=== PATIENT | male | born 1980 | race African-American/Black ===

== ENCOUNTER 2018-06-03 04:23 | Inpatient (IN) | payer SELFPAY ==
[~2018-06-03] VITALS: Ht 185.4 cm; Wt 117.7 kg
[2018-06-03] MEDS ORDERED: ASPIRIN 81MG TABLET PO ONE (04:45)
[2018-06-03 04:50] LABS: BASOPHILS % 0.6 % (0.0-2.0); EOSINOPHILS % 0.7 % (0.0-5.0); HEMATOCRIT. 42.5 % (42.0-52.0); HEMOGLOBIN. 14.7 g/dL (14.0-18.0); LYMPHOCYTES % 7.9 % (20.0-50.0); MEAN CORPUSCULAR HEMOGLOBIN 29.3 pg (28.0-32.0); MEAN CORPUSCULAR VOLUME 84.7 fL (80.0-94.0); MEAN PLATELET VOLUME 8.8 fl (7.4-10.4); MONOCYTES % 4.5 % (2.0-8.0); NEUTROPHILS % 86.3 % (40.0-76.0); PLATELET 152 x1000/uL (130-400); RED BLOOD CELL COUNT 5.02 mill/uL (4.7-6.1); RED CELL DISTRIBUTION WIDTH 13.8 % (11.6-14.6)
[2018-06-03 04:57] LABS: CHLORIDE 104 mEq/L (98-107)
[2018-06-03] MEDS ORDERED: CLONIDINE 0.2MG TABLET PO ONE (05:30)
[2018-06-03] MEDS ORDERED: CLONIDINE 0.2MG TABLET PO PRN (08:45)
[2018-06-03] MEDS ORDERED: IPRATROPIUM/ALBUTEROL 0.5-3(2.5)MG/3ML NEB INH PRN ×2 (08:45→11:15)
[2018-06-03] MEDS ORDERED: ACETAMINOPHEN 325MG TABLET PO PRN (08:45)
[2018-06-03] MEDS ORDERED: ONDANSETRON HCL 4MG/2ML INJ IV PRN (08:45)
[2018-06-03] MEDS ORDERED: MAGNESIUM/ALUMINUM HYDROXIDE/SIMETHICONE 30ML UDC PO PRN ×2 (08:45→11:15)
[2018-06-03] MEDS ORDERED: GUAIFENESIN 200MG/10ML SUGAR FREE UDC PO PRN ×2 (08:45→11:15)
[2018-06-03] MEDS ORDERED: DIPHENHYDRAMINE 50MG/ML VIAL IV PRN ×2 (08:45→11:15)
[2018-06-03] MEDS ORDERED: LOSARTAN POTASSIUM 100 MG TABLET PO SCH (09:15)
[2018-06-03] MEDS ORDERED: NIFEDIPINE XL 60MG TAB PO SCH (09:15)
[2018-06-03] MEDS ORDERED: DEXTROSE 50% WATER 50ML SYRINGE IV PRN ×2 (09:15→11:15)
[2018-06-03] MEDS ORDERED: HYDRALAZINE 20MG/ML VIAL IV PRN ×2 (09:15→11:15)
[2018-06-03] MEDS ORDERED: INSULIN GLARGINE UD 100 UNITS/ML SYR SUBCUT SCH (10:00)
[2018-06-03 11:38] VITALS: BP 154/102
[2018-06-03 11:45] VITALS: BP 154/102
[2018-06-03] MEDS: NIFEDIPINE XL 60MG TAB PO SCH (12:41)
[2018-06-03] MEDS: LOSARTAN POTASSIUM 100 MG TABLET PO SCH (12:41)
[2018-06-03] MEDS: INSULIN GLARGINE UD 100 UNITS/ML SYR SUBCUT SCH (12:50)
[2018-06-03] MEDS ORDERED: BLOOD SUGAR DIAGNOSTIC STRIP TEST SCH (13:00)
[2018-06-03] MEDS ORDERED: INSULIN LISPRO 100 UNITS/ML SUBCUT SCH (13:20)
[2018-06-03] MEDS ORDERED: SODIUM CHLORIDE 0.9% INJ 3ML FLUSH IVF SCH (14:00)
[2018-06-03] MEDS: SODIUM CHLORIDE 0.9% INJ 3ML FLUSH IVF SCH ×2 (14:11→20:42)
[2018-06-03] MEDS ORDERED: HYDROCHLOROTHIAZIDE 25MG TABLET PO SCH (15:30)
[2018-06-03] MEDS: FUROSEMIDE 40MG/4ML VIAL IVP SCH (15:49)
[2018-06-03] MEDS: POTASSIUM CHLORIDE 20MEQ TABLET SR PO SCH (15:49)
[2018-06-03] MEDS: BLOOD SUGAR DIAGNOSTIC STRIP TEST SCH ×2 (16:36→20:42)
[2018-06-03 16:42] VITALS: BP 154/100
[2018-06-03] MEDS: INSULIN LISPRO 100 UNITS/ML SUBCUT SCH ×2 (16:51→20:42)
[2018-06-03] MEDS: METFORMIN HCL 500MG TABLET PO SCH (16:51)
[2018-06-03] MEDS ORDERED: METFORMIN HCL 500MG TABLET PO SCH (17:00)
[2018-06-03 20:00] VITALS: BP 143/90
[2018-06-03] MEDS: METOPROLOL TARTRATE 25MG TABLET PO SCH (20:41)
[2018-06-04] VITALS: BP 144/89
[2018-06-04 04:00] VITALS: BP 147/99
[2018-06-04 05:49] LABS: BASOPHILS % 0.3 % (0.0-2.0); EOSINOPHILS % 1.7 % (0.0-5.0); HEMATOCRIT. 44.8 % (42.0-52.0); HEMOGLOBIN. 15.3 g/dL (14.0-18.0); LYMPHOCYTES % 17.6 % (20.0-50.0); MEAN CORPUSCULAR HEMOGLOBIN 29.2 pg (28.0-32.0); MEAN CORPUSCULAR VOLUME 85.3 fL (80.0-94.0); MEAN PLATELET VOLUME 9.7 fl (7.4-10.4); MONOCYTES % 4.7 % (2.0-8.0); NEUTROPHILS % 75.7 % (40.0-76.0); PLATELET 186 x1000/uL (130-400); RED BLOOD CELL COUNT 5.25 mill/uL (4.7-6.1); RED CELL DISTRIBUTION WIDTH 13.5 % (11.6-14.6)
[2018-06-04 05:55] LABS: CHLORIDE 105 mEq/L (98-107)
[2018-06-04 06:02] LABS: LDL CHOLESTEROL 163 mg/dL (5-100)
[2018-06-04 06:03] LABS: HDL CHOLESTEROL 42 mg/dL (40-59)
[2018-06-04] MEDS: INSULIN LISPRO 100 UNITS/ML SUBCUT SCH ×2 (06:25→11:46)
[2018-06-04] MEDS: SODIUM CHLORIDE 0.9% INJ 3ML FLUSH IVF SCH ×2 (06:26→15:35)
[2018-06-04] MEDS: BLOOD SUGAR DIAGNOSTIC STRIP TEST SCH ×2 (06:26→11:41)
[2018-06-04 08:00] VITALS: BP 143/96
[2018-06-04 08:01] LABS: METHADONE URINE SCREEN NEGATIVE (NEGATIVE); OPIATES URINE SCREEN NEGATIVE (NEGATIVE)
[2018-06-04 08:02] LABS: *AMPHETAMINES SCREEN URINE NEGATIVE (NEGATIVE); *BARBITURATES SCREEN URINE NEGATIVE (NEGATIVE); *BENZODIAZEPINES SCREEN URINE NEGATIVE (NEGATIVE); *COCAINE SCREEN URINE NEGATIVE (NEGATIVE); CANNABINOID URINE SCREEN NEGATIVE (NEGATIVE); PHENCYCLIDINE URINE SCREEN NEGATIVE (NEGATIVE)
[2018-06-04] MEDS: NIFEDIPINE XL 60MG TAB PO SCH (09:23)
[2018-06-04] MEDS: METOPROLOL TARTRATE 25MG TABLET PO SCH (09:23)
[2018-06-04] MEDS: POTASSIUM CHLORIDE 20MEQ TABLET SR PO SCH (09:23)
[2018-06-04] MEDS: LOSARTAN POTASSIUM 100 MG TABLET PO SCH (09:23)
[2018-06-04] MEDS: FUROSEMIDE 40MG/4ML VIAL IVP SCH (09:24)
[2018-06-04] MEDS: METFORMIN HCL 500MG TABLET PO SCH (09:24)
[2018-06-04] MEDS: INSULIN GLARGINE UD 100 UNITS/ML SYR SUBCUT SCH (11:41)
[2018-06-04 13:16] VITALS: BP 138/83
[2018-06-04 14:14] LABS: PLATELET ESTIMATE NORMAL
[2018-06-05] MEDS ORDERED: INSULIN GLARGINE UD 100 UNITS/ML SYR SUBCUT SCH (10:00)
== END 2018-06-04 15:36 | disposition home or self-care (01) | DRG 199 ==
LOC: ER 04:23 → 8WST 05:38 → ENRESERV 07:09 → CANRESERV 07:37 → ENRESERV 07:37 → CANBEDREQ 07:38 → ENRESERV 10:08 → ER 11:06 → 8WST 12:40
PROVIDERS: ADMIT Internal Medicine; ATTEND Internal Medicine
DX: I16.1 Hypertensive emergency (principal); I50.23 Acute on chronic systolic (congestive) heart failure; E11.65 Type 2 diabetes mellitus with hyperglycemia; E66.01 Morbid (severe) obesity due to excess calories; I11.0 Hypertensive heart disease with heart failure; E78.00 Pure hypercholesterolemia, unspecified; Z79.84 Long term (current) use of oral hypoglycemic drugs; Z79.899 Other long term (current) drug therapy; Z82.49 Family history of ischemic heart disease and other diseases of the circulatory system; Z83.3 Family history of diabetes mellitus; Z91.19 Patient's noncompliance with other medical treatment and regimen; Z88.5 Allergy status to narcotic agent
CPT/HCPCS: 36415; 71045; 80048; 80061; 80305; 82962; 83036; 83880; 84443; 84484; 93005; 93306; 93970; 99291; J1815; J1940

== ENCOUNTER 2018-06-08 08:20 | Emergency (ER) | payer SELFPAY ==
[~2018-06-08] VITALS: Ht 185.4 cm; Wt 118.0 kg
[2018-06-08 11:30] VITALS: BP 160/90
== END 2018-06-08 11:32 | disposition home or self-care (01) ==
LOC: ER 08:20
DX: R07.9 Chest pain, unspecified (principal); R06.02 Shortness of breath; E78.00 Pure hypercholesterolemia, unspecified; E11.9 Type 2 diabetes mellitus without complications; I10 Essential (primary) hypertension; Z88.5 Allergy status to narcotic agent
CPT/HCPCS: 99283

== ENCOUNTER 2018-09-08 03:17 | Inpatient (IN) | payer MEDICAID, OTHER ==
[~2018-09-08] VITALS: Ht 182.9 cm; Wt 115.4 kg
[2018-09-08] VITALS (9 sets, daily range): BP systolic 156–177; BP diastolic 86–127
[2018-09-08] MEDS ORDERED: SODIUM CHLORIDE 0.9% 1,000 ML IV ONE (03:33)
[2018-09-08 03:49] LABS: BASOPHILS % 0.4 % (0.0-2.0); EOSINOPHILS % 0.4 % (0.0-5.0); HEMATOCRIT. 38.8 % (42.0-52.0); HEMOGLOBIN. 13.1 g/dL (14.0-18.0); LYMPHOCYTES % 7.3 % (20.0-50.0); MEAN CORPUSCULAR HEMOGLOBIN 29.4 pg (28.0-32.0); MEAN CORPUSCULAR VOLUME 87.4 fL (80.0-94.0); MEAN PLATELET VOLUME 8.3 fl (7.4-10.4); MONOCYTES % 4.1 % (2.0-8.0); NEUTROPHILS % 87.8 % (40.0-76.0); PLATELET 160 x1000/uL (130-400); RED BLOOD CELL COUNT 4.44 mill/uL (4.7-6.1); RED CELL DISTRIBUTION WIDTH 14.1 % (11.6-14.6)
[2018-09-08 03:53] LABS: CLARITY URINE CLEAR (CLEAR); COLOR URINE YELLOW (YELLOW); KETONES URINE TRACE (NEGATIVE); LEUKOCYTE ESTERASE URINE NEGATIVE (NEGATIVE); NITRITE URINE NEGATIVE (NEGATIVE); OCCULT BLOOD URINE NEGATIVE (NEGATIVE); PROTEIN URINE NEGATIVE (NEGATIVE); SPECIFIC GRAVITY URINE 1.011 (1.005-1.030)
[2018-09-08 03:55] LABS: CHLORIDE 108 mEq/L (98-107)
[2018-09-08 03:59] LABS: ETHANOL BLOOD < 10 mg/dL
[2018-09-08 04:04] LABS: *AMPHETAMINES SCREEN URINE NEGATIVE (NEGATIVE); *BARBITURATES SCREEN URINE NEGATIVE (NEGATIVE); *BENZODIAZEPINES SCREEN URINE NEGATIVE (NEGATIVE); *COCAINE SCREEN URINE NEGATIVE (NEGATIVE); METHADONE URINE SCREEN NEGATIVE (NEGATIVE); OPIATES URINE SCREEN NEGATIVE (NEGATIVE); PHENCYCLIDINE URINE SCREEN NEGATIVE (NEGATIVE)
[2018-09-08 04:05] LABS: CANNABINOID URINE SCREEN NEGATIVE (NEGATIVE)
[2018-09-08] MEDS ORDERED: POTASSIUM CHLORIDE 20MEQ TABLET SR PO SCH (04:15)
[2018-09-08] MEDS ORDERED: KETOROLAC 30MG/ML VIAL IV SCH (04:15)
[2018-09-08] MEDS: FUROSEMIDE 40MG/4ML VIAL IVP SCH ×3 (05:13→09:55)
[2018-09-08] MEDS ORDERED: ONDANSETRON HCL 4MG/2ML INJ IV PRN (08:30)
[2018-09-08] MEDS ORDERED: DEXTROSE 50% WATER 50ML SYRINGE IV PRN (08:30)
[2018-09-08] MEDS ORDERED: IPRATROPIUM/ALBUTEROL 0.5-3(2.5)MG/3ML NEB HHN PRN (08:30)
[2018-09-08] MEDS ORDERED: CLONIDINE 0.1MG TABLET PO PRN ×2 (08:30→15:15)
[2018-09-08] MEDS ORDERED: ACETAMINOPHEN 325MG TABLET PO PRN (08:30)
[2018-09-08] MEDS ORDERED: AMLODIPINE 5MG TABLET PO SCH (09:00)
[2018-09-08] MEDS: AZITHROMYCIN 500 MG TABLET PO SCH (09:55)
[2018-09-08] MEDS: ENOXAPARIN 40MG/0.4ML SYR SUBCUT SCH (09:56)
[2018-09-08] MEDS: LOSARTAN POTASSIUM 100 MG TABLET PO SCH (12:22)
[2018-09-08] MEDS: BLOOD SUGAR DIAGNOSTIC STRIP TEST SCH ×3 (12:25→21:59)
[2018-09-08] MEDS ORDERED: NIFEDIPINE XL 60MG TAB PO SCH (13:00)
[2018-09-08] MEDS: INSULIN LISPRO 100 UNITS/ML SUBCUT SCH ×3 (13:06→22:19)
[2018-09-08] MEDS ORDERED: HYDRALAZINE 20MG/ML VIAL IV PRN (15:00)
[2018-09-08] MEDS: CEFTRIAXONE 1 G PREMIX 50 ML IV SCH (15:51)
[2018-09-08] MEDS ORDERED: FURO40TA5 PO (20:35)
[2018-09-08] MEDS ORDERED: METF-416 MT (20:35)
[2018-09-08] MEDS ORDERED: ATORVASTATIN CALCIUM 40MG TABLET PO SCH (21:00)
[2018-09-08] MEDS ORDERED: IBUPROFEN 600MG TABLET PO PRN (21:15)
[2018-09-08] MEDS ORDERED: DICL100G31 TP (21:28)
[2018-09-08] MEDS ORDERED: ATOR40TA70 MT (21:28)
[2018-09-08] MEDS: NIFEDIPINE XL 60MG TAB PO SCH (21:52)
[2018-09-08] MEDS: CARVEDILOL 12.5MG TABLET PO SCH (21:53)
[2018-09-08] MEDS: HYDRALAZINE HCL 50MG TABLET PO SCH (22:18)
[2018-09-09] VITALS (14 sets, daily range): BP systolic 125–168; BP diastolic 67–105
[2018-09-09] MEDS: HYDRALAZINE HCL 50MG TABLET PO SCH ×2 (06:00→13:41)
[2018-09-09 06:10] LABS: BASOPHILS % 0.5 % (0.0-2.0); EOSINOPHILS % 4.8 % (0.0-5.0); HEMATOCRIT. 41.7 % (42.0-52.0); HEMOGLOBIN. 14.2 g/dL (14.0-18.0); LYMPHOCYTES % 16.2 % (20.0-50.0); MEAN CORPUSCULAR HEMOGLOBIN 29.6 pg (28.0-32.0); MEAN PLATELET VOLUME 9.2 fl (7.4-10.4); MONOCYTES % 5.1 % (2.0-8.0); NEUTROPHILS % 73.4 % (40.0-76.0); PLATELET 179 x1000/uL (130-400); RED BLOOD CELL COUNT 4.79 mill/uL (4.7-6.1); RED CELL DISTRIBUTION WIDTH 14.1 % (11.6-14.6)
[2018-09-09 06:28] LABS: CHLORIDE 107 mEq/L (98-107)
[2018-09-09 06:40] LABS: LDL CHOLESTEROL 64 mg/dL (5-100)
[2018-09-09 06:41] LABS: CREATINE KINASE 150 IU/L (39-308)
[2018-09-09 06:42] LABS: HDL CHOLESTEROL 37 mg/dL (40-59)
[2018-09-09 06:44] LABS: CREATINE KINASE MB FRACTION < 1.0 ng/mL (0.5-3.6)
[2018-09-09] MEDS: BLOOD SUGAR DIAGNOSTIC STRIP TEST SCH ×3 (08:20→17:30)
[2018-09-09] MEDS: ENOXAPARIN 40MG/0.4ML SYR SUBCUT SCH (08:30)
[2018-09-09] MEDS: FUROSEMIDE 40MG/4ML VIAL IVP SCH (08:30)
[2018-09-09] MEDS: AZITHROMYCIN 500 MG TABLET PO SCH (08:31)
[2018-09-09] MEDS: INSULIN LISPRO 100 UNITS/ML SUBCUT SCH ×3 (08:32→18:00)
[2018-09-09] MEDS: CARVEDILOL 12.5MG TABLET PO SCH (08:34)
[2018-09-09] MEDS: NIFEDIPINE XL 60MG TAB PO SCH (08:39)
[2018-09-09] MEDS: LOSARTAN POTASSIUM 100 MG TABLET PO SCH (08:39)
[2018-09-09] MEDS ORDERED: ASPIRIN 81MG EC TABLET PO SCH (09:00)
[2018-09-09] MEDS ORDERED: POTASSIUM CHLORIDE 20MEQ TABLET SR PO SCH (11:00)
[2018-09-09] MEDS: CEFTRIAXONE 1 G PREMIX 50 ML IV SCH (13:33)
[2018-09-09 15:43] LABS: T4 FREE 1.17 ng/dL (0.76-1.46)
[2018-09-09] MEDS ORDERED: ATORVASTATIN CALCIUM 40MG TABLET PO SCH (21:00)
== END 2018-09-09 18:44 | disposition home or self-care (01) | DRG 194 ==
LOC: ER 03:17 → 5EST 04:55 → ENRESERV 06:57
PROVIDERS: ADMIT Internal Medicine; ATTEND Internal Medicine
DX: I11.0 Hypertensive heart disease with heart failure (principal); J96.00 Acute respiratory failure, unspecified whether with hypoxia or hypercapnia; E87.8 Other disorders of electrolyte and fluid balance, not elsewhere classified; I50.23 Acute on chronic systolic (congestive) heart failure; I31.3 Pericardial effusion (noninflammatory); I42.9 Cardiomyopathy, unspecified; E11.9 Type 2 diabetes mellitus without complications; E78.00 Pure hypercholesterolemia, unspecified; E78.5 Hyperlipidemia, unspecified; E87.6 Hypokalemia; I45.10 Unspecified right bundle-branch block; G90.8 Other disorders of autonomic nervous system; Z88.5 Allergy status to narcotic agent
CPT/HCPCS: 36415; 71045; 80048; 80061; 80305; 80320; 82550; 82553; 82962; 83735; 83880; 84145; 84439; 84443; 84481; 84484; 93005; 93306; 96374; 96375; 99291; J0696; J1650; J1815; J1885; J1940; J7030; J7050; G0480

== ENCOUNTER 2018-09-13 10:52 | Emergency (ER) | payer MEDICAID ==
[~2018-09-13] VITALS: Ht 185.4 cm; Wt 113.0 kg
[~2018-09-13 10:52] MED LIST: ATOR40TA70 MT; DICL100G31 TP; FURO40TA5 PO; METF-416 MT
[2018-09-13 12:07] VITALS: BP 137/90
== END 2018-09-13 12:07 | disposition home or self-care (01) ==
LOC: ER 10:52
DX: I11.9 Hypertensive heart disease without heart failure (principal); I43 Cardiomyopathy in diseases classified elsewhere; E11.9 Type 2 diabetes mellitus without complications; G47.00 Insomnia, unspecified; E78.00 Pure hypercholesterolemia, unspecified; Z88.5 Allergy status to narcotic agent; Z79.899 Other long term (current) drug therapy
CPT/HCPCS: 99283